=== PATIENT | male | born 1990 | race Caucasian/White ===

== ENCOUNTER 2018-05-19 06:59 | Day surgery (SDC) | payer OTHER ==
[~2018-05-19] VITALS: Ht 185.4 cm; Wt 121.7 kg
[2018-05-19] VITALS (10 sets, daily range): BP systolic 114–144; BP diastolic 60–78
[~2018-05-19 06:59] MED LIST: NO HOME MEDS; ceFAZolin inj. 3,000 MG in normal saline 100ml IV soln 100 ML IV ONE; famotidine 20mg tablet PO ONE; ringers solution, lacted 1,000 ML IV SCH
[2018-05-19] MEDS ORDERED: BUPIVAcaine/PF 2.5mg/ml (0.25%) 10ml vial ONE (09:26)
[2018-05-19] MEDS ORDERED: fentaNYL/PF 50MCG/1 ML 2ML syringe ONE ×2 (09:41→10:47)
[2018-05-19] MEDS ORDERED: MIDAZolam 5mg/5ml vial ONE (09:41)
[2018-05-19] MEDS ORDERED: cloNIDine hcl/PF 100mcg/ml inj ONE (09:44)
[2018-05-19] MEDS ORDERED: sevoflurane 250ml liquid IH ONE (09:52)
[2018-05-19] MEDS ORDERED: ROPIVAcaine 0.2%/PF PAIN PUMP 550 ML IJ SCH (11:26)
[2018-05-19] MEDS ORDERED: ringers solution, lacted 1,000 ML IV SCH (11:26)
[2018-05-19] MEDS ORDERED: morphine 4 MG/ML inj SYRINge IV PRN ×2 (11:30)
[2018-05-19] MEDS ORDERED: meperidine/PF 25mg/ml syringe IV PRN ×3 (11:30)
[2018-05-19] MEDS ORDERED: ondansetron/PF 4mg/2ml inj IV PRN (11:30)
[2018-05-19] MEDS ORDERED: proCHLORperazine 10 MG/2 ml inj IV PRN (11:30)
[2018-05-19] MEDS ORDERED: dexamethasone sod phosphate 4mg/ml inj. ONE (11:36)
[2018-05-19] MEDS ORDERED: propofol inj 20 ML IV ONE (11:36)
[2018-05-19] MEDS ORDERED: ePHEDrine 50MG/ML INJ. ONE (11:36)
[2018-05-19] MEDS ORDERED: ondansetron/PF 4mg/2ml inj ONE (11:36)
[2018-05-19] MEDS ORDERED: LIDOcaine 1%/PF 5ML 10 MG/ML VIAL ONE (11:36)
--- NOTE | 2018-05-19 11:50 | NUR ---
Received from OR via bed, accompanied by Anesthesiologist. Report received. Initial physical assessment done and recorded.
[2018-05-19] MEDS ORDERED: HYDROcodone/acetaminophen 10/325mg tab PO PRN (12:10)
--- NOTE | 2018-05-19 13:40 | NUR ---
Discharge criteria met, discharge instructions given, demonstrates verbal understanding. Discharged home in good condition. No complaints of pain during post op period, no pain meds given no complaints. Discharge instructions included regarding [employer] [facility] [employer] pamphlet included.
== END 2018-05-19 13:40 | disposition home or self-care (01) ==
LOC: PAS 06:59
PROVIDERS: ATTEND Orthopaedic Surgery
DX: S43.014A Anterior dislocation of right humerus, initial encounter (principal); M19.111 Post-traumatic osteoarthritis, right shoulder; Z87.01 Personal history of pneumonia (recurrent); Z79.82 Long term (current) use of aspirin; Z72.89 Other problems related to lifestyle; Z79.899 Other long term (current) drug therapy; W01.0XXA Fall on same level from slipping, tripping and stumbling without subsequent striking against object, initial encounter; Y93.89 Activity, other specified; Y92.89 Other specified places as the place of occurrence of the external cause; Y99.0 Civilian activity done for income or pay
CPT/HCPCS: 29806; 64415; 82948; A6449; C1713; J0690; J0735; J1100; J2001; J2250; J2405; J2704; J2795; J3010; J3490; J7120; A4565; A7000; J7030